=== PATIENT | female | born 1970 | race Caucasian/White ===

== ENCOUNTER 2024-01-29 19:19 | Emergency (ER) | payer OTHER, SELFPAY ==
[2024-01-29 19:16] VITALS: BP 128/73; PULSE 107; RESP 19; TEMP 37; O2SAT 98
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
[2024-01-29 19:33] VITALS: O2SAT 95
[2024-01-29 19:40] VITALS: PULSE 77; O2SAT 97
[2024-01-29] MEDS: fentaNYL 100 MCG/2 ML VIAL 25 MCG IVP (20:42)
[2024-01-29 20:43] VITALS: BP 128/73; PULSE 110; RESP 21; TEMP 36.1; O2SAT 97
== END 2024-01-29 20:45 | disposition short-term general hospital (02) ==
LOC: ER 20:43
PROVIDERS: Emergency Provider Emergency Medicine
DX: Z04.1 Encounter for examination and observation following transport accident (principal); S68.122A Partial traumatic metacarpophalangeal amputation of right middle finger, initial encounter; F17.210 Nicotine dependence, cigarettes, uncomplicated; V40.6XXA Car passenger injured in collision with pedestrian or animal in traffic accident, initial encounter
CPT/HCPCS: 96374; 99285; J3010